=== PATIENT | female | born 2000 | race Caucasian/White ===

== ENCOUNTER → 2022-12-04 | Outpatient (CLI) | payer OTHER, MEDICAID ==
--- NOTE | 2022-12-04 17:42 | Diagnostic Imaging Report ---
INDICATION: Supervision of normal . Anatomy scan. TECHNIQUE: Multiple real-time grayscale images were obtained over the gravid uterus. COMPARISON: None FINDINGS: A single live intrauterine gestation is visualized in breech presentation. heart tones measure 136 bpm. The placenta is posterior and not low-lying. The ANTHONY measures 9.6 cm. The cervix is closed and measures 4.2 cm in length. The kidneys, bladder, stomach, brain, four-chamber heart, outflow tracts, three-vessel cord, cord insertion, and spine are visualized and have a normal sonographic appearance. Biometrical measurements are as follows: Biparietal 4.23 cm, age 18 weeks 6 days. Head circumference 16.64 cm, age 19 weeks 3 days. Abdominal circumference 13.51 cm, age 19 weeks 0 days. Femur length 3.06 cm, age 19 weeks 4 days. Sonographic estimate age: 19 weeks 2 days. Sonographic estimated date of delivery: 04/28/2023. Estimated Weight: 280 gm (+/- 41 gm). LMP percentile: 20%. heart rate: 136 beats per minute. number: 1 of 1. IMPRESSION: 1. Single live intrauterine gestation measuring 19 weeks 2 days for an estimated due date of 04/28/2023. These are within range with the clinical dates. Recommend continued follow-up. 2. Breech presentation. 3. Unremarkable anatomy scan. No sonographic abnormality is seen at this time. Dictated by: Dictated on workstation # [id number]
== END ==
LOC: RAD 14:12
PROVIDERS: ATTEND Obstetrics & Gynecology
DX: Z34.02 Encounter for supervision of normal first pregnancy, second trimester (principal); Z3A.19 19 weeks gestation of pregnancy
CPT/HCPCS: 76805